=== PATIENT | male | born 1995 | race Caucasian/White ===

== ENCOUNTER 2023-03-22 17:18 | Inpatient (IN) ==
[2023-03-22] MEDS ORDERED: cefTRIAXone 1 gm/50 mL D5W 1 GM/50 ML BAG IV ONE (19:41)
[2023-03-22] MEDS ORDERED: NS 0.9% IVPB ONE (20:35)
[2023-03-22] MEDS ORDERED: AZITHROMYCIN IVPB ONE (20:35)
[2023-03-22 21:25] LABS: Hematocrit 41.9 % (38-53); Hemoglobin 15.3 g/dL (13.2-16.3); Mean Corpuscular Hemoglobin 34.6 pg (27-33); Mean Corpuscular Hgb Conc 36.4 g/dL (31-36); Mean Corpuscular Volume 94.9 fL (80-97); Mean Platelet Volume 7.8 fL (7.5-11.2); Platelet Count 348 10^3/uL (150-450); Red Blood Count 4.42 10^6/uL (4.06-5.63); Red Cell Distribution Width 13.3 % (12-17); White Blood Count 10.2 10^3/uL (3.6-10.2)
[2023-03-22 21:44] LABS: Albumin 4.8 g/dL (3.2-5.2); Albumin/Globulin Ratio 1.8 (1-3); Calcium 9.7 mg/dL (8.6-10.3); Creatinine, Serum 1.15 mg/dL (0.67-1.17); Globulin 2.7 g/dL (2-4); Total Bilirubin 2.3 mg/dL (0.2-1.0); Total Protein 7.5 g/dL (6.4-8.9); eGFR CKD-EPI 89.5 (>60)
[2023-03-22 22:24] LABS: ABS Basophils 0.1 10^3/uL (0.0-0.1); ABS Eosinophils 0.2 10^3/uL (0.0-0.5); ABS Lymphocytes 1.5 10^3/uL (1.0-4.8); ABS Monocytes 1.1 10^3/uL (0.0-1.1); ABS Neutrophils 7.3 10^3/uL (1.5-7.6); ABS Nucleated RBC 0.02 10^3/ul; Eosinophil % 1.7 %; Lymphocyte % 15.2 %; Nucleated Red Blood Cells % 0.2 %/100WBC (0.0-0.8)
[2023-03-22 22:25] LABS: RBC Morphology Normal (Normal)
[2023-03-22 22:26] LABS: Direct Bilirubin 0.2 mg/dL (0.03-0.18); Indirect Bilirubin 2.1 mg/dL (0.3-1.0)
[2023-03-22] MEDS ORDERED: ED ONCE IVPB ONE (23:00)
[2023-03-22] MEDS ORDERED: AZITHROMYCIN 250 MG IVPB ONE (23:00)
[2023-03-22 23:13] LABS: C Reactive Protein 12.01 mg/L (<8.01)
[2023-03-23] MEDS ORDERED: Lactated Ringers 1000 ml BAG 1,000 ML IV SCH (05:00)
[2023-03-23 07:16] LABS: Hematocrit 24.6 % (38-53); Mean Corpuscular Hemoglobin 58.9 pg (27-33); Mean Corpuscular Hgb Conc 56.7 g/dL (31-36); Red Blood Count 2.37 10^6/uL (4.06-5.63); White Blood Count 5.5 10^3/uL (3.6-10.2)
[2023-03-23 07:28] LABS: Creatinine, Serum 1.08 mg/dL (0.67-1.17); Potassium 4.3 mmol/L (3.5-5.0); eGFR CKD-EPI 96.5 (>60)
[2023-03-23 07:58] LABS: ABS Basophils 0.1 10^3/uL (0.0-0.1); ABS Eosinophils 0.2 10^3/uL (0.0-0.5); ABS Lymphocytes 1.3 10^3/uL (1.0-4.8); ABS Nucleated RBC 0.01 10^3/ul; Eosinophil % 2.8 %; Lymphocyte % 22.7 %; Mean Platelet Volume 8.3 fL (7.5-11.2); Nucleated Red Blood Cells % 0.2 %/100WBC (0.0-0.8); Platelet Count 299 10^3/uL (150-450); RBC Morphology Normal (Normal)
[2023-03-23] MEDS ORDERED: cefTRIAXone 1 gm/50 mL D5W 1 GM/50 ML BAG IV SCH ×2 (21:00)
[2023-03-24 08:48] LABS: Hemoglobin 14.7 g/dL (13.2-16.3); Mean Corpuscular Hgb Conc 38.8 g/dL (31-36); Mean Platelet Volume 8.6 fL (7.5-11.2); Platelet Count 300 10^3/uL (150-450); Red Blood Count 3.61 10^6/uL (4.06-5.63); Red Cell Distribution Width 13.1 % (12-17)
[2023-03-24 08:52] LABS: Calcium 9.3 mg/dL (8.6-10.3); Creatinine, Serum 1.04 mg/dL (0.67-1.17); Potassium 5.5 mmol/L (3.5-5.0); eGFR CKD-EPI 100.9 (>60)
[2023-03-24 09:00] LABS: Mean Corpuscular Hemoglobin 40.7 pg (27-33)
[2023-03-24 09:09] LABS: ABS Basophils 0.1 10^3/uL (0.0-0.1); ABS Eosinophils 0.2 10^3/uL (0.0-0.5); ABS Lymphocytes 1.8 10^3/uL (1.0-4.8); ABS Monocytes 1.4 10^3/uL (0.0-1.1); ABS Neutrophils 6.4 10^3/uL (1.5-7.6); ABS Nucleated RBC 0.03 10^3/ul; Eosinophil % 2.2 %; Lymphocyte % 18.3 %; Nucleated Red Blood Cells % 0.3 %/100WBC (0.0-0.8)
[2023-03-25 06:25] LABS: Calcium 9.4 mg/dL (8.6-10.3); Creatinine, Serum 1.16 mg/dL (0.67-1.17); Potassium 4.9 mmol/L (3.5-5.0); eGFR CKD-EPI 88.5 (>60)
[2023-03-25 08:18] LABS: Magnesium 2.3 mg/dL (1.9-2.7)
[2023-03-25 09:11] LABS: White Blood Count 9.8 10^3/uL (3.6-10.2)
[2023-03-25 09:12] LABS: Hematocrit 39.9 % (38-53); Hemoglobin 14.4 g/dL (13.2-16.3); Mean Corpuscular Hgb Conc 36.1 g/dL (31-36); Mean Corpuscular Volume 88.7 fL (80-97); Mean Platelet Volume 8.1 fL (7.5-11.2); Platelet Count 306 10^3/uL (150-450); Red Cell Distribution Width 13.1 % (12-17)
[2023-03-25 10:43] LABS: C Reactive Protein 16.06 mg/L (<8.01)
[2023-03-25] MEDS ORDERED: Iohexol 350 (CONTRAST) 500 ML MDV IV ONE (14:45)
[2023-03-25] MEDS: Enoxaparin 100 MG/ML SYR SUBCUT SCH (18:56)
[2023-03-25 21:12] LABS: ABS Basophils 0.1 10^3/uL (0.0-0.1); ABS Eosinophils 0.2 10^3/uL (0.0-0.5); ABS Lymphocytes 1.8 10^3/uL (1.0-4.8); ABS Monocytes 1.5 10^3/uL (0.0-1.1); ABS Neutrophils 5.1 10^3/uL (1.5-7.6); ABS Nucleated RBC 0.04 10^3/ul; Eosinophil % 2.3 %; Lymphocyte % 20.9 %; Nucleated Red Blood Cells % 0.5 %/100WBC (0.0-0.8); Rouleaux 3+
[2023-03-25 21:30] LABS: High Sensitivity Troponin 1 Hr 3 pg/mL (<20)
[2023-03-25 23:16] LABS: High Sensitivity Troponin 1 Hr 3 pg/mL (<20)
[2023-03-26] MEDS: Enoxaparin 100 MG/ML SYR SUBCUT SCH ×2 (05:18→19:07)
[2023-03-26 06:29] LABS: Calcium 9.4 mg/dL (8.6-10.3); Creatinine, Serum 1.14 mg/dL (0.67-1.17); Magnesium 2.2 mg/dL (1.9-2.7); Potassium 5.3 mmol/L (3.5-5.0); eGFR CKD-EPI 90.4 (>60)
[2023-03-26 08:48] LABS: ABS Basophils 0.1 10^3/uL (0.0-0.1); ABS Eosinophils 0.3 10^3/uL (0.0-0.5); ABS Lymphocytes 2.5 10^3/uL (1.0-4.8); ABS Monocytes 1.6 10^3/uL (0.0-1.1); ABS Neutrophils 4.9 10^3/uL (1.5-7.6); ABS Nucleated RBC 0.08 10^3/ul; Eosinophil % 2.8 %; Hematocrit 27.4 % (38-53); Hemoglobin 14.6 g/dL (13.2-16.3); Lymphocyte % 26.3 %; Mean Corpuscular Hemoglobin 65.2 pg (27-33); Mean Corpuscular Hgb Conc 53.1 g/dL (31-36); Mean Corpuscular Volume 122.8 fL (80-97); Mean Platelet Volume 9.2 fL (7.5-11.2); Nucleated Red Blood Cells % 0.8 %/100WBC (0.0-0.8); Platelet Count Platelets clumped. 10^3/uL (150-450); Red Blood Count 2.23 10^6/uL (4.06-5.63); Red Cell Distribution Width 13.7 % (12-17); White Blood Count 9.4 10^3/uL (3.6-10.2)
[2023-03-26 08:49] LABS: Polychromasia 1+; Rouleaux 1+
[2023-03-26 09:10] LABS: RBC Morphology Normal (Normal)
[2023-03-26] MEDS ORDERED: D5W 1000 ml BAG 1,000 ML IV SCH (11:00)
[2023-03-26 16:03] LABS: Calcium 9.5 mg/dL (8.6-10.3); Creatinine, Serum 1.11 mg/dL (0.67-1.17); Potassium 4.2 mmol/L (3.5-5.0); eGFR CKD-EPI 93.3 (>60)
[2023-03-26 18:21] VITALS: BP 131/77
== END 2023-03-26 19:10 | disposition home or self-care (01) | DRG 139 ==
LOC: ED 17:18 → SUATTDRO 22:46 → EDHOLD 22:46 → MED 03-23 04:26
PROVIDERS: ADMIT Internal Medicine; ATTEND Internal Medicine